=== PATIENT | female | born 1990 | race Caucasian/White ===

== ENCOUNTER → 2017-07-03 | Outpatient (CLI) | payer MEDICAID ==
--- NOTE | 2017-07-03 15:55 | CT ---
EXAMINATION TYPE: CT brain wo con DATE OF EXAM: 07/03/2017 COMPARISON: NONE HISTORY: Headaches x few years. CT DLP: 1174 mGycm. Automated Exposure Control for Dose Reduction was Utilized. TECHNIQUE: CT scan of the head is performed without contrast. FINDINGS: There is symmetric prominence of CSF over bilateral frontal lobes consistent with chronic subdural hygromas or asymmetric mild to moderate bilateral frontal lobe atrophy. There is no acute i ntracranial hemorrhage or midline shift identified. The ventricles and sulci are within normal limit s in size. The globes are intact and the visualized sinuses are clear. IMPRESSION: No acute intracranial hemorrhage or midline shift is seen. Mild to moderate symmetric bi lateral frontal lobe atrophy or bilateral chronic subdural hygromas somewhat pronounced for patient's chronologic age.
== END | disposition home or self-care (01) ==
LOC: RADCTMAIN 15:02
PROVIDERS: ATTEND Family Medicine
DX: G43.001 Migraine without aura, not intractable, with status migrainosus (principal)
CPT/HCPCS: 70450

== ENCOUNTER → 2020-06-08 | Outpatient (CLI) | payer OTHER ==
--- NOTE | 2020-06-08 10:39 | XR ---
EXAMINATION TYPE: XR finger LT DATE OF EXAM: 06/08/2020 COMPARISON: NONE HISTORY: Pain after injury 4 weeks ago. TECHNIQUE: 2 views left thumb. FINDINGS: Seen on frontal view there is oblique intra-articular fracture through the ulnar base of th e first proximal phalanx. Slight distraction is seen with roughly 4 x 2 mm fracture fragment. Overlyi ng soft tissue is unremarkable. Remainder osseous structures preserved. IMPRESSION: As above. Gamekeeper's thumb injury. Advise orthopedic surgical referral to assess for po ssible Stener lesion.
== END ==
LOC: RADXRYALE 09:21
PROVIDERS: ATTEND Physician Assistant Medical
DX: S60.932A Unspecified superficial injury of left thumb, initial encounter (principal)

== ENCOUNTER 2024-04-07 16:20 | Inpatient (IN) | payer BC ==
[2024-04-07] MEDS ORDERED: TRANEXAMIC 1,000 MG/100ML-NACL 1,000 MG in EMPTY BAG 1 BAG IV PRN (16:23)
[2024-04-07] MEDS ORDERED: TERBUTALINE 1 MG/ML VIAL SQ PRN (16:23)
[2024-04-07] MEDS ORDERED: miSOPROStoL 200 MCG TAB PO PRN (16:23)
[2024-04-07] MEDS ORDERED: CARBOPROST TROMETHAMINE 250 MCG/ML 1 ML AMP IM PRN (16:23)
[2024-04-07] MEDS ORDERED: miSOPROStoL 200 MCG TAB RECTAL PRN (16:23)
[2024-04-07] MEDS ORDERED: OXYTOCIN 10 UNIT/ML 1 ML VIAL IM PRN (16:23)
[2024-04-07] MEDS ORDERED: LIDOCAINE 0.5% (PF) 5 MG/ML (50 ML SDV) SQ PRN (16:23)
[2024-04-07] MEDS ORDERED: METHYLERGONOVINE 0.2 MG/ML 1 ML AMP IM PRN (16:23)
[2024-04-07] MEDS: DINOPROSTONE 10 MG INSERT.ER VAGINAL ONE (16:47)
[2024-04-07 16:52] LABS: Basophils % (A) 0 %; Eosinophils # (A) 0.4 k/uL (0-0.7); Eosinophils % (A) 2 %; HCT 37.3 % (34.0-46.0); HGB 12.8 gm/dL (11.4-16.0); Lymphocytes # (A) 2.6 k/uL (1.0-4.8); Lymphocytes % (A) 18 %; MCH 29.8 pg (25.0-35.0); MCHC 34.2 g/dL (31.0-37.0); MCV 87.3 fL (80.0-100.0); Mean Platelet Volume 8.3; Monocytes # (A) 0.8 k/uL (0-1.0); Monocytes % (A) 6 %; Neutrophils # (A) 10.7 k/uL (1.3-7.7); Neutrophils % (A) 72 %; Platelet Count 223 k/uL (150-450); RBC 4.28 m/uL (3.80-5.40); RDW 14.7 % (11.5-15.5); WBC 14.8 k/uL (3.8-10.6)
[2024-04-07 18:49] LABS: Appearance,Urine Clear (Clear); Bilirubin,Urine Negative (Negative); Blood,Urine Negative (Negative); Color,Urine Colorless; Glucose,Urine (UA) Negative (Negative); Ketones,Urine Negative (Negative); Leukocyte Esterase,Urine Negative (Negative); Nitrite,Urine Negative (Negative); PH, Urine 6.5 (5.0-8.0); Protein,Urine Negative (Negative); Specific Gravity,Urine 1.009 (1.001-1.035); Urobilinogen,Urine <2.0 mg/dL (<2.0)
--- NOTE | 2024-04-07 19:24 | P.PROBDLV ---
Vaginal Delivery Note - . Vaginal Delivery Note: Viable male delivered at 1910, weight of 7 pounds 1 ounce 33-year-old 4 para 1-0-2-1 that presented to labor and delivery at 39- 0/7 weeks for induction of labor. Patient has been receiving routine care which has been essentially uncomplicated. Patient was admitted and Pitocin induction of labor was begun per hospital protocol. Patient underwent amniotomy and clear fluid was obtained. Patient progressed through labor eventually becoming uncomfortable and requesting epidural. Epidural was placed without difficulty by the anesthesia department. Patient made good progress toward complete dilation. Once completely dilated she began pushing and had a normal spontaneous vaginal delivery of a viable male at 1910, weight of 7 pounds 1 ounces, Apgars of 9 and 9 at 1 and 5 minutes respectively. After 2-minute delay the umbilical cord was doubly clamped and cut. Spontaneous cry was noted at . The stent was delivered spontaneously intact with a three-vessel cord being noted. Inspection the patient's vaginal vault superficial lacerations were appreciated nothing necessitating a suture closure. Uterus was noted to be firm below the umbilicus. Counts were noted to be correct x 2. Patient and infant tolerated delivery well and are resting comfortably.
[2024-04-07] MEDS ORDERED: diphenhydrAMINE 50 MG/ML 1 ML VIAL IVP PRN ×2 (19:25)
[2024-04-07] MEDS ORDERED: BENZOCAINE/MENTHOL SPRAY 1 GM/SPRAY AEROSOL TOPICAL PRN (19:25)
[2024-04-07] MEDS ORDERED: diphenhydrAMINE 50 MG CAP PO PRN (19:25)
[2024-04-07] MEDS ORDERED: ZOLPIDEM 5 MG TAB PO PRN (19:25)
[2024-04-07] MEDS ORDERED: HYDROCORTISONE 2.5% RECTAL CREAM 30 GM TUBE RECTAL PRN (19:25)
[2024-04-07] MEDS ORDERED: SIMETHICONE 80 MG CHEWABLE PO PRN (19:25)
[2024-04-07] MEDS ORDERED: diphenhydrAMINE 25 MG CAP PO PRN (19:25)
[2024-04-07] MEDS ORDERED: LANOLIN CREAM 1 GM TUBE TOPICAL PRN (19:25)
--- NOTE | 2024-04-07 19:25 | P.HPOB ---
History of Present Illness H&P Date: 04/07/24 Chief Complaint: IUP at 40-0/7 weeks 33-year-old G1, P0 at 40-0/7 weeks that presents to labor and delivery for induction of labor. Patient notes good movement denies contractions loss of fluid or vaginal bleeding. blood work this patient is a blood type of O+, rubella status immune, hepatitis B surface engine negative, HIV negative, RPR is nonreactive, grew beta strep cultures unknown. Review of Systems Constitutional: Denies chills, Denies fatigue, Denies fever Ears, nose, mouth and throat: Denies headache Cardiovascular: Reports leg edema Gastrointestinal: Denies constipation, Denies diarrhea, Denies nausea, Denies vomiting Genitourinary: Reports Past Medical History Past Medical History: No Reported History History of Any Multi-Drug Resistant Organisms: None Reported Additional Past Surgical History / Comment(s): knee x2, lump removal from neck as child Past Anesthesia/Blood Transfusion Reactions: No Reported Reaction Past Psychological History: Depression Smoking Status: Never smoker - Past Family History Mother Family Medical History: Diabetes Mellitus Medications and Allergies Home Medications Medication Instructions Recorded Confirmed Type Citalopram Hydrobromide [CeleXA] 10 mg PO DAILY 03/31/24 04/07/24 History Vit No.179/Iron/Folic 1 each PO DAILY 03/31/24 04/07/24 History [ Tablet] Allergies Allergy/AdvReac Type Severity Reaction Status Date / Time Sulfa (Sulfonamide Allergy Unknown Verified 04/07/24 16:22 Antibiotics) Childhood Exam Osteopathic Statement: *. No significant issues noted on an osteopathic structural exam other than those noted in the History and Physical/Consult. Vital Signs Temp Pulse Resp BP Pulse Ox 04/07/24 16:21 97.6 F 88 16 137/97 98 Intake and Output 04/07/24 04/07/24 04/07/24 06:59 14:59 22:59 Other: Weight 95.708 kg Targeted physical exam is performed this date in general this is a well- nourished well-developed female in no acute distress, breathing is nonlabored, heart has a regular rate and rhythm, abdomen is gravid, on cervical exam she is 1-2/50/-2, vertex presentation, Cervidil is placed without difficulty. heart tones are noted to be category 1 and she is not rhona Results Result Diagrams: 04/07/24 16:37 Assessment and Plan (1) Term Current Visit: Yes Status: Acute Code(s): Z34.90 - ENCNTR FOR SUPRVSN OF NORMAL , UNSP, UNSP TRIMESTER SNOMED Code(s): 97770264 Plan: 33-year-old 1 para 0 at 40-0/7 weeks that presents to labor and delivery for induction of labor. Cervidil is placed without difficulty. Options for analgesia are discussed including Nubain, nitrous, epidural.
[2024-04-07 19:30] LABS: ALT 12 U/L (4-34); AST 22 U/L (14-36); African American GFR (CKD) >90 (>60 ml/min/1.73 sqM); Blood Urea Nitrogen 16 mg/dL (7-17); LDH 200 U/L (120-246); Non-African American GFR(CKD) >90 (>60 ml/min/1.73 sqM); Uric Acid 6.2 mg/dL (3.7-7.4)
[2024-04-07] MEDS: NALBUPHINE 10 MG/ML (10 ML MDV) IV PRN (21:03)
[2024-04-07 22:01] LABS: Creatinine,Urine Random 57.1 mg/dL; Protein/Creatinine Ratio,Urine 0.228
[2024-04-07 22:01] LABS: Creatinine,Urine Random 56.4 mg/dL
[2024-04-08] MEDS: LACTATED RINGERS 1,000 ML IV SCH (00:05)
[2024-04-08] MEDS: ACETAMINOPHEN TAB 500 MG TAB PO SCH (00:06)
[2024-04-08] MEDS: IBUPROFEN 800 MG TAB PO SCH (00:06)
[2024-04-08] MEDS: SENNOSIDES-DOCUSATE SODIUM 1 EACH TAB PO SCH (00:06)
[2024-04-08] MEDS: OXYTOCIN 30 UNITS/500 ML NS 30 UNIT in SALINE 1 500ML.BAG IV SCH (06:08)
[2024-04-08] MEDS ORDERED: SODIUM CHLORIDE 0.9% 250 ML BAG ONE (10:41)
[2024-04-08] MEDS ORDERED: ROPIVACAINE 5 MG/ML 30 ML VIAL ONE (10:41)
[2024-04-08] MEDS ORDERED: fentaNYL (PF) 50 MCG/ML 5 ML AMP ONE (10:41)
[2024-04-08] MEDS: ONDANSETRON 4 MG/2 ML VIAL IM STA (15:27)
--- NOTE | 2024-04-08 17:58 | P.PROBDLV ---
Vaginal Delivery Note - . Vaginal Delivery Note: Viable male delivered at 1735, weight of 7 pounds 13.6 ounces 33-year-old 2 para 0-0-1-0 at 40 and 1 sevenths weeks that presented to labor and delivery last evening for scheduled induction of labor. Patient was admitted and Cervidil induction of labor was begun. Patient progressed through the night receiving Nubain x 2 for discomfort. Cervidil was removed and patient was noted to be 3 cm. Amniotomy was performed and clear fluid was obtained. P Pitocin was begun per hospital protocol in addition for augmentation of labor. Patient did become uncomfortable and request epidural. Epidural was placed without difficulty by the anesthesia department. Patient made good progress toward complete dilation. Once completely dilated patient began pushing. With excellent maternal effort patient had a normal spontaneous vaginal delivery of a viable male infant at 1735, weight of 7 pounds 13.6 ounces Apgars of 8 and 9 at 1 and 5 minutes respectively. Cord blood was then taken. After a 2-minute delay the umbilical cord was doubly clamped and cut. Placenta was delivered spontaneously intact with three-vessel cord being noted. Uterus was noted to be firm and below the umbilicus. A right upper catheter was used to drain the bladder approximately 100 cc of clear yellow urine. On inspection the patient's vaginal vault a right lateral sidewall laceration was appreciated this was bleeding therefore this was injected with lidocaine and repaired with a [id number] suture. A first-degree vaginal laceration was noted injected with lidocaine and repaired in the usual fashion with 3-0 Rapide. After repair lacerations were noted to be hemostatic. All counts were to be correct x 2 at the end of the delivery. Infant tolerated delivery well and are resting comfortably.
[2024-04-09] MEDS: MEASLES-MUMPS-RUBELLA VACC/PF 12,500 UNIT/0.5 ML VIAL SQ ONE (04:20)
--- NOTE | 2024-04-09 07:53 | P.DS ---
Providers Date of admission: 04/07/24 16:20 Expected date of discharge: 04/09/24 Attending physician: Kenya Jean Baptiste Primary care physician: Stated None - Discharge Diagnosis(es) (1) Term Current Visit: Yes Status: Acute (2) Status post vaginal delivery Current Visit: Yes Status: Acute (3) Obstetrical laceration, first degree Current Visit: Yes Status: Acute Hospital Course: 33-year-old 2 now para 1-0-1-1 that presented to labor and delivery at 40 0/7 weeks for induction of labor. Patient was admitted and Cervidil was placed without difficulty. Patient progressed to the evening becoming uncom fortable and receiving Nubain x 2. Cervidil was removed in the morning and patient was noted to be 3 cm. Amniotomy was performed and clear fluid was obtained. Pitocin was begun for labor augmentation. Patient requested epidural which was placed without difficulty by the anesthesia department. Patient made good progress toward complete dilation. Once completely dilated she began pushing and had a normal spontaneous vaginal delivery of a viable male infant at 1735, weight of 7 pounds 13.6 ounces. A 6 first-degree obstetric laceration was appreciated on the right lateral vaginal wall this was repaired with a [id number] suture of 0 Vicryl. Patient's course has been uneventful. In this day #1 she is ambulating and voiding without difficulty. She is tolerating regular diet without nausea or vomiting. She states her pain is well-controlled. She would like discharge home later today, at 24 hours. Patient Condition at Discharge: Good Plan - Discharge Summary New Discharge Prescriptions: No Action Citalopram Hydrobromide [CeleXA] 10 mg PO DAILY Vit No.179/Iron/Folic [ Tablet] 1 each PO DAILY Discharge Medication List Citalopram Hydrobromide [CeleXA] 10 mg PO DAILY 03/31/24 [History] Vit No.179/Iron/Folic [ Tablet] 1 each PO DAILY 03/31/24 [History] Follow up Appointment(s)/Referral(s): Kenya Jean Baptiste DO [Doctor of Osteopathic Medicine] - 05/19/24 1:00 pm Patient Instructions/Handouts: Vaginal Delivery (GEN), Vaginal Delivery (DC) Activity/Diet/Wound Care/Special Instructions: [id number]-pfy-[id number] ibuprofen 600 mg or 3 tablets every 6 hours as needed for pain. Patient is to call the office to make a routine visit for 6 weeks. Should she have any concerns prior to this visit she is urged to call the office and be seen
[2024-04-09 16:15] VITALS: BP 126/85; PULSE 79; RESP 16; TEMP 98
== END 2024-04-09 18:10 | disposition home or self-care (01) | DRG 807 ==
LOC: 4FBP 16:20 → MERGE 16:30
PROVIDERS: ADMIT Obstetrics & Gynecology Obstetrics; ATTEND Obstetrics & Gynecology Obstetrics
PROC: 3E0P7VZ Introduction of Hormone into Female Reproductive, Via Natural or Artificial Opening (ICD-10-PCS; principal; 2024-04-07)
PROC: 10907ZC Drainage of Amniotic Fluid, Therapeutic from Products of Conception, Via Natural or Artificial Opening (ICD-10-PCS; 2024-04-08)
PROC: 10E0XZZ Delivery of Products of Conception, External Approach (ICD-10-PCS; 2024-04-08)
PROC: 0HQ9XZZ Repair Perineum Skin, External Approach (ICD-10-PCS; 2024-04-08)
PROC: 3E0134Z Introduction of Serum, Toxoid and Vaccine into Subcutaneous Tissue, Percutaneous Approach (ICD-10-PCS; 2024-04-09)
DX: O70.0 First degree perineal laceration during delivery (principal); Z37.0 Single live birth; O99.344 Other mental disorders complicating childbirth; F32.A Depression, unspecified; Z88.2 Allergy status to sulfonamides; Z23 Encounter for immunization; Z79.899 Other long term (current) drug therapy; Z3A.40 40 weeks gestation of pregnancy
CPT/HCPCS: 81003; 82565; 82570; 83615; 84156; 84450; 84460; 84520; 84550; 85025; 86850; 86900; 86901; 90707